=== PATIENT | female | born 1935 | race Hispanic/Latino ===

== ENCOUNTER 2016-05-08 06:08 | Inpatient (IN) | payer MEDICARE ==
[2016-05-08 06:09] VITALS: PULSE 81
[2016-05-08] MEDS ORDERED: Albuterol-Ipratrop 3 mg / 0.5 (3 ml) UD ONE ×2 (06:27→10:51)
[2016-05-08] MEDS ORDERED: Albuterol-Ipratrop 3 mg / 0.5 (3 ml) UD INH STA (06:29)
[2016-05-08] MEDS ORDERED: Albuterol-Ipratrop 3 mg / 0.5 (3 ml) UD IH STA ×2 (06:29→10:31)
[2016-05-08 06:41] LABS: BASO # 0.1 K/uL (0.0-0.2); BASO % 0.9 % (0.0-2.0); EOS # 0.2 K/uL (0.0-0.7); EOS % 2.7 % (0.0-4.0); HEMATOCRIT 36.6 % (34.0-47.0); LYMPH # 1.2 K/uL (1.0-4.3); LYMPH % 18.5 % (20.0-40.0); MEAN CELL VOLUME 99.1 fl (81.0-99.0); MEAN CORPUSCULAR HEMOGLOBIN 34.4 pg (27.0-31.0); MEAN CORPUSCULAR HGB CONC 34.7 g/dL (33.0-37.0); MEAN PLATELET VOLUME 6.5 fl (7.2-11.7); MONO # 0.4 K/uL (0.0-0.8); MONO % 6.8 % (0.0-10.0); NEUT # 4.6 K/uL (1.8-7.0); NEUT % 71.1 % (50.0-75.0); NRBC % 0.1 % (0.0-0.0); RED CELL DISTRIBUTION WIDTH 16.2 % (11.5-14.5); WHITE BLOOD COUNT 6.5 K/uL (4.8-10.8)
[2016-05-08 06:47] LABS: ALB/GLOB RATIO 0.9 (1.0-2.1); ALKALINE PHOSPHATASE 93 U/L (38-126); ALT/SGPT 25 U/L (9-52); AST/SGOT 44 U/L (14-36); BILIRUBIN,TOTAL 4.6 mg/dl (0.2-1.3); BLOOD UREA NITROGEN 23 mg/dl (7-17); CALCIUM 8.9 mg/dL (8.4-10.2); CARBON DIOXIDE 31 mmol/L (22-30); CHLORIDE 100 mmol/L (98-107); GFR AFRICAN-AMERICAN > 60; GLUCOSE,RANDOM 103 mg/dL (65-105); POTASSIUM 4.1 MMOL/L (3.6-5.0); SODIUM 141 mmol/l (132-148); TOTAL PROTEIN 9.5 G/DL (6.3-8.2)
[2016-05-08 06:49] LABS: PARTIAL THROMBOPLASTIN TIME 30.3 SECONDS (23.3-32.5)
--- NOTE | 2016-05-08 06:52 | ED PDOC ---
HPI: SOB/CHF/COPD Time Seen by Provider: 05/08/16 06:15 Chief Complaint (Nursing): Shortness Of Breath Chief Complaint (Provider): Shortness of Breath History Per: Patient, Family () Onset/Duration Of Symptoms: Days (has been going on for the past three weeks) Current Symptoms Are (Timing): Still Present Additional Complaint(s): 6:15 Lisa Gardner is a 80 year old female with a history of heart failure, hypertension, and dementia and a past surgical history of open heart surgery that present to the ED with a chief complaint of shortness of breath that she experienced a few hours ago when trying to go to sleep. Patient reports that she went to bed without a problem, developed her shortness of breath throughout the night She states that it is much more difficult for her to breathe when laying down as opposed to when she sits up. She denies any nausea, vomiting, diarrhea. Had chest pain as well, gone now. No weakness, cough, runny nose, nasal congestion. No long distance travel, calf pain, or hormone tx. PMD: Delmar Bello V Past Medical History Reviewed: Historical Data, Nursing Documentation, Vital Signs Vital Signs: Last Vital Signs Temp 98.3 F 05/08/16 08:18 Pulse 96 H 05/08/16 08:18 Resp 27 H 05/08/16 08:18 BP 151/85 H 05/08/16 08:18 Pulse Ox 95 05/08/16 08:34 - Medical History PMH: Atrial Fibrillation, CAD, CHF, Dementia, HTN Denies: Chronic Kidney Disease - Surgical History Surgical History: Appendectomy, CABG, Coronary Stent - Family History Family History: States: Unknown Family Hx - Living Arrangements Living Arrangements: With Family - Social History Current smoker - smoking cessation education provided: No Alcohol: None Drugs: Denies - Home Medications Home Medications: Ambulatory Orders Medication Instructions Recorded Alendronate [Fosamax] 70 mg PO QWK 06/16/15 Atorvastatin [Lipitor] 10 mg PO DAILY 06/16/15 Furosemide [Lasix] 40 mg PO DAILY 06/16/15 Megestrol Acetate [Megace] 10 ml PO DAILY 06/16/15 Metoprolol Tartrate [Lopressor] 25 mg PO DAILY 06/16/15 Olmesartan Medoxomil [Benicar] 20 mg PO DAILY 06/16/15 Rivastigmine [Exelon 13.3 mg/24 hr 13.3 mg TD DAILY 06/16/15 Patch] Sertraline [Zoloft] 50 mg PO DAILY 06/16/15 Warfarin [Coumadin] 5 mg PO DAILY 06/16/15 Lidocaine 5% [Lidoderm] 1 ea TD DAILY #5 patch 04/20/16 traMADol [Ultram] 50 mg PO TID PRN #12 tab 04/20/16 - Allergies Allergies/Adverse Reactions: Allergies Allergy/AdvReac Type Severity Reaction Status Date / Time No Known Allergies Allergy Verified 06/16/15 12:50 Review of Systems ROS Statement: Except As Marked, All Systems Reviewed And Found Negative Respiratory: Positive for: Shortness of Breath Gastrointestinal: Negative for: Nausea, Vomiting, Abdominal Pain, Diarrhea Physical Exam - Reviewed Nursing Documentation Reviewed: Yes Vital Signs Reviewed: Yes - Physical Exam Appears: Positive for: Non-toxic, No Acute Distress Head Exam: Positive for: ATRAUMATIC, NORMAL INSPECTION, NORMOCEPHALIC Skin: Positive for: Normal Color, Warm, Dry Eye Exam: Positive for: Normal appearance, EOMI, PERRL ENT: Positive for: Normal ENT Inspection. Negative for: Nasal Congestion Neck: Positive for: Normal, Painless ROM, Supple Cardiovascular/Chest: Positive for: Regular Rate, Rhythm. Negative for: Murmur Respiratory: Positive for: Decreased Breath Sounds (bilaterally). Negative for : Wheezing Gastrointestinal/Abdominal: Positive for: Soft. Negative for: Tenderness, Distended Back: Positive for: Normal Inspection. Negative for: L CVA Tenderness, R CVA Tenderness Extremity: Positive for: Normal ROM, Tenderness. Negative for: Pedal Edema Neurologic/Psych: Positive for: Alert, Oriented - Laboratory Results Result Diagrams: 05/08/16 06:31 05/08/16 06:31 Interpretation Of Abn Labs: no acute - ECG ECG: Positive for: Interpreted By Me, Viewed By Me ECG Rhythm: Positive for: Normal QRS, Sinus Rhythm, Nonspecific Changes O2 Sat by Pulse Oximetry: 95 (RA) Pulse Ox Interpretation: Normal - Radiology X-Ray: Interpreted by Me, Viewed By Me X-Ray Interpretation: Cardiomegaly - CT Scan/US ct Other Rad Studies (CT/US): Read By Radiologist Other Rad Interpretation: no pe - Progress ED Course And Treament: 1000: Spoke with Dr. Eli. Will admit tele obs. Unclear source of dyspnea, possibly chronic cardiomegaly. Will give duoneb again as it seems to help pt. Wants morphine for back pain, from previous ? fx. Pt. with no chest pain. AAOx3. Stable. No asa, as pt. on coumadin. Medical Decision Making Medical Decision Makin:30 Initial Impression: Shortness of Breath Initial Plan: * CMP * PTT * PT * Troponin * B-Type Natriuretic Peptide * EKG * Chest X-Ray * Albuterol 3 mL IH * Methylprednisolone 125 mg IVP * Reevaluation Scribe Attestation: Documented by Dulce Spencer, acting as a scribe for Terrance Oliva MD. Provider Scribe Attestation: All medical record entries made by the Scribe were at my direction and personally dictated by me. I have reviewed the chart and agree that the record accurately reflects my personal performance of the history, physical exam, medical decision making, and the department course for this patient. I have also personally directed, reviewed, and agree with the discharge instructions and disposition. Disposition - Clinical Impression Clinical Impression: Chest pain, Dyspnea - Patient ED Disposition Is Patient to be Admitted: Yes Counseled Patient/Family Regarding: Studies Performed, Diagnosis - Disposition Disposition Time: 10:34 Condition: FAIR - Pt Status Changed To: Hospital Disposition Of: Observation - POA Present On Arrival: Falls Or Trauma (hx per pt.)
[2016-05-08 08:29] LABS: ABG ALLEN TEST YES; ARTERIAL BLOOD GAS HCO3 28.4 mmol/L (21-28); ARTERIAL BLOOD GAS PH 7.48 (7.35-7.45); ARTERIAL BLOOD GAS PO2 70 mm/Hg (80-100); DRAW SITE rr
[2016-05-08] MEDS ORDERED: Sodium Chloride 0.9% 50 ML IV ONE (08:49)
[2016-05-08] MEDS ORDERED: Iodixanol 320 MG/ML 100 ML BOTTLE IV ONE (08:49)
--- NOTE | 2016-05-08 08:59 | RAD ---
HISTORY: dyspnea COMPARISON: 04/20/2016 FINDINGS: LUNGS: There is some mild increase in subsegmental atelectasis in volume loss at the lung bases. Minimal amount of pleural fluid is not excluded. Trachea is midline. PLEURA: Minimal amount of pleural fluid not excluded. CARDIOVASCULAR: Heart is once again moderately enlarged. Vasculature does not appear to be significantly congested. Aorta is unchanged. OSSEOUS STRUCTURES: No significant abnormalities. VISUALIZED UPPER ABDOMEN: Normal. OTHER FINDINGS: None. IMPRESSION: Severe Cardiomegaly. Mild increase in bibasilar volume loss from prior study.
--- NOTE | 2016-05-08 10:16 | CT ---
PROCEDURE: CT Chest with contrast (Pulmonary Angiogram) HISTORY: chest pain COMPARISON: None available. TECHNIQUE: Axial computed tomography images were obtained of the chest in the pulmonary arterial phase of enhancement. Coronal and sagittal reformatted images were created and reviewed. Intravenous contrast dose: 100 cc Radiation dose: Total exam DLP = 715 mGy-cm. FINDINGS: PULMONARY ARTERIES: No filling defect is seen in the pulmonary arteries. Examination is limited for evaluation of the peripheral subsegmental pulmonary arteries due to motion artifact and moderate cardiomegaly. Pulmonary arteries are enlarged consistent with pulmonary arterial hypertension. AORTA: Delayed imaging was also obtained. There is atherosclerotic change of the aorta and mild aneurysmal dilatation of the ascending aorta. No intimal flap is seen to suggest aortic dissection. LUNGS: No focal alveolar infiltrate is seen. Mild subsegmental atelectasis is seen medially and posteriorly at the lung bases with a small amount also seen in the inferior lingula. Mild chronic interstitial changes and interlobular thickening are noted which may suggest chronic vascular congestion or other interstitial process. PLEURAL SPACES: No large pleural effusions. There may be some very minimal posterior pleural fluid and/or pleural thickening noted. HEART: Extreme cardiomegaly. LYMPH NODES: No appreciable mediastinal adenopathy. BONES, CHEST WALL: Moderate degenerative changes are seen in the spine. There is a chronic appearing compression fractures seen in the mid thoracic spine region as well as some other smaller wedge deformities in the mid to lower thoracic spine. No lytic process is seen. There is evidence of prior median sternotomy. OTHER FINDINGS: Unremarkable. IMPRESSION: No CT scan evidence of pulmonary embolism. Delayed images were also obtained. No intimal flap is seen in the aorta to suggest aortic dissection. Severe cardiomegaly and probable pulmonary arterial hypertension. Mild interstitial changes and scarring. No large pleural effusion. No focal alveolar infiltrate. Probable mild vascular congestion and/or interstitial change.
--- NOTE | 2016-05-08 12:41 | CP.PCM.HP ---
History of Present Illness - History of Present Illness History of Present Illness: 80 y/o w/f pt of Dr Bello admitted with 3 week Hx OLIVIER / PND PMH: s/p CABS w/MVR 2002 Chronic R & L systolic CHF Atrial Fibrillation, CAD, CHF, Dementia, HTN Denies: Chronic Kidney Disease EKG: AF Troponin: neg BNP: 548 Present on Admission - Present on Admission Any Indicators Present on Admission: No Review of Systems - Review of Systems Systems not reviewed;Unavailable: Dementia - Cardiovascular Cardiovascular: Dyspnea - Respiratory Respiratory: Dyspnea Past Patient History - Past Social History Alcohol: None Drugs: Denies - CARDIAC Hx Cardiac Disorders: Yes Hx Atrial Fibrillation: Yes Hx Congestive Heart Failure: Yes - PULMONARY Hx Respiratory Disorders: Yes - NEUROLOGICAL Hx Neurological Disorder: Yes Hx Alzheimer's Disease: Yes Hx Dementia: Yes - HEENT Hx HEENT Problems: No - RENAL Hx Chronic Kidney Disease: Yes - ENDOCRINE/METABOLIC Hx Endocrine Disorders: No - HEMATOLOGICAL/ONCOLOGICAL Hx Blood Disorders: No - INTEGUMENTARY Hx Dermatological Problems: No - MUSCULOSKELETAL/RHEUMATOLOGICAL Hx Musculoskeletal Disorders: No Hx Falls: No - GENITOURINARY/GYNECOLOGICAL Hx Genitourinary Disorders: No - PSYCHIATRIC Hx Psychophysiologic Disorder: Yes - SURGICAL HISTORY Hx Appendectomy: Yes Hx Coronary Artery Bypass Graft: Yes Hx Coronary Stent: Yes - ANESTHESIA Hx Anesthesia: Yes Meds Allergies/Adverse Reactions: Allergies Allergy/AdvReac Type Severity Reaction Status Date / Time No Known Allergies Allergy Verified 06/16/15 12:50 Physical Exam - Respiratory Exam Respiratory Exam: Decreased Breath Sounds - Cardiovascular Exam Cardiovascular Exam: Irregular Rhythm Results - Vital Signs Recent Vital Signs: Last Vital Signs Temp 98.3 F 05/08/16 08:18 Pulse 100 H 05/08/16 12:05 Resp 27 H 05/08/16 08:18 BP 158/86 H 05/08/16 12:05 Pulse Ox 97 05/08/16 11:10 - Labs Result Diagrams: 05/08/16 06:31 05/08/16 06:31 Assessment & Plan (1) Chest pain Status: Acute (2) Dyspnea Status: Chronic (3) Back pain Status: Chronic
[2016-05-08] MEDS ORDERED: Dextrose 5%/0.45% NS 1,000 ML IV SCH (13:30)
[2016-05-08] MEDS: Albuterol-Ipratrop 3 mg / 0.5 (3 ml) UD INH SCH ×2 (15:59→19:36)
[2016-05-08 16:22] VITALS: BMI 23.0
[2016-05-09] MEDS: Albuterol-Ipratrop 3 mg / 0.5 (3 ml) UD INH SCH ×4 (07:30→20:02)
--- NOTE | 2016-05-09 09:43 | CP.PCM.PN ---
Subjective - Date & Time of Evaluation Date of Evaluation: 05/09/16 Time of Evaluation: 09:42 - Subjective Subjective: Pt seen resting in bed comfortable No SOB Tele: af @ 70 BPM PT: 37.9 INR: 3.64 Will hold coumadin today Objective - Vital Signs/Intake and Output Vital Signs (last 24 hours): Temp Pulse Resp BP Pulse Ox 98.6 F 103 H 24 151/88 H 94 L 05/09/16 05:00 05/09/16 05:00 05/09/16 05:00 05/09/16 05:00 05/09/16 05:00 Intake and Output: 05/09/16 05/09/16 06:59 18:59 Intake Total 980 Balance 980 - Medications Medications: Current Medications Albuterol/Ipratropium (Duoneb 3 Mg/0.5 Mg (3 Ml) Ud) 3 ml INH RQID ALISON Last Admin: 05/09/16 07:30 Dose: 3 ml Hydromorphone HCl (Dilaudid) 2 mg PO Q6 PRN PRN Reason: Pain, moderate (4-7) Last Admin: 05/08/16 21:47 Dose: 2 mg Dextrose/Sodium Chloride (Dextrose 5%/0.45% Ns 1000 Ml) 1,000 mls @ 40 mls/hr IV .Q24H ALISON Stop: 05/09/16 13:31 Last Admin: 05/08/16 14:59 Dose: 40 mls/hr - Labs Labs: PT 37.9 SECONDS (9.6-11.2) H* D 05/09/16 06:00 INR 3.64 (0.92-1.08) H D 05/09/16 06:00 APTT 30.3 SECONDS (23.3-32.5) 05/08/16 06:31 Assessment and Plan (1) Chest pain Status: Acute (2) Dyspnea Status: Chronic (3) Back pain Status: Chronic
--- NOTE | 2016-05-09 17:02 | RAD ---
PROCEDURE: Radiographs of the pelvis. HISTORY: pelvis pain COMPARISON: None. FINDINGS: BONES: Pelvic Bones: Single frontal view of the pelvis reveals no evidence of lytic process or fracture within the iliac bones or pubic rami. Symphysis is unremarkable. Hips: Mild bilateral hip DJD without femoral head flattening or lytic process. No hip fracture. JOINTS: Sacroiliac Joints: Unremarkable. Pubic Symphysis: Unremarkable. OTHER FINDINGS: Degenerative changes are seen in the lower lumbar spine. Diffuse osteopenia is identified. IMPRESSION: Diffuse osteopenia limiting evaluation for subtle fracture. No acute fracture clearly seen.
[2016-05-10] MEDS: Albuterol-Ipratrop 3 mg / 0.5 (3 ml) UD INH SCH ×4 (07:48→19:37)
--- NOTE | 2016-05-10 09:27 | CP.PCM.CON ---
History of Present Illness - History of Present Illness History of Present Illness: 80yF with hx of dementia, CHF, CAD, pulmonary HTN, dyspnea presents to [facility] with chronic intractable back pain. Back pain is located in the lower back, VAS 6-7/10 with radiation to her right leg. Pain started one month ago. Pain is intermittent and sharp. She went to a health and safety advisor for evaluation who ordered an MRI which was not done. Pt is with daughter who has been helping take care of patient; daughter states that mother has had some recent falls and is not ambulatory at home. Pt is also on Coumadin which was recently held 2 d ago. Past Patient History - Past Medical History & Family History Past Medical History?: Yes - Past Social History Smoking Status: Never Smoked - CARDIAC Hx Cardiac Disorders: Yes Hx Atrial Fibrillation: Yes Hx Congestive Heart Failure: Yes - PULMONARY Hx Respiratory Disorders: Yes Hx Asthma: No - NEUROLOGICAL Hx Neurological Disorder: Yes Hx Alzheimer's Disease: Yes Hx Dementia: Yes - HEENT Hx HEENT Problems: No - RENAL Hx Chronic Kidney Disease: No - ENDOCRINE/METABOLIC Hx Endocrine Disorders: No - HEMATOLOGICAL/ONCOLOGICAL Hx Blood Disorders: No Hx AIDS: No Hx Human Immunodeficiency Virus (HIV): No - INTEGUMENTARY Hx Dermatological Problems: No - MUSCULOSKELETAL/RHEUMATOLOGICAL Hx Musculoskeletal Disorders: No Hx Falls: No - GASTROINTESTINAL Hx Gastrointestinal Disorders: No - GENITOURINARY/GYNECOLOGICAL Hx Genitourinary Disorders: No - PSYCHIATRIC Hx Psychophysiologic Disorder: No Hx Substance Use: No - SURGICAL HISTORY Hx Coronary Artery Bypass Graft: Yes - ANESTHESIA Hx Anesthesia: Yes Hx Anesthesia Reactions: No Hx Malignant Hyperthermia: No Has any member of the family had a problem w/ anesthesia?: No Meds Allergies/Adverse Reactions: Allergies Allergy/AdvReac Type Severity Reaction Status Date / Time No Known Allergies Allergy Verified 06/16/15 12:50 - Medications Medications: Current Medications Acetaminophen (Tylenol 325mg Tab) 650 mg PO Q4 PRN PRN Reason: Pain, Mild (1-3) Albuterol/Ipratropium (Duoneb 3 Mg/0.5 Mg (3 Ml) Ud) 3 ml INH RQID ALISON Last Admin: 05/10/16 07:48 Dose: 3 ml Celecoxib (Celebrex) 100 mg PO Q12 PRN PRN Reason: Pain, moderate (4-7) Furosemide (Lasix) 40 mg IVP ONCE ONE Stop: 05/10/16 09:24 Lidocaine (Lidoderm) 1 ea TD DAILY ALISON Pregabalin (Lyrica) 25 mg PO BID ALISON Physical Exam - Constitutional Appears: No Acute Distress - Back Exam Additional comments: limited ROM, mild to moderate L spine tenderness, mild paraveterbral tenderness over facets - Neurological Exam Additional comments: DP flex 4/5 bilateral LE, sensation grossly intact Results - Vital Signs Recent Vital Signs: Last Vital Signs Temp 97.8 F 05/10/16 08:21 Pulse 81 05/10/16 08:21 Resp 18 05/10/16 08:21 BP 154/73 H 05/10/16 08:21 Pulse Ox 98 05/10/16 08:21 - Labs Result Diagrams: 05/08/16 06:31 05/08/16 06:31 Labs: Laboratory Results - last 24 hr 05/10/16 05:40 PT 35.6 H* INR 3.42 H Assessment & Plan - Assessment and Plan (Free Text) Assessment: 80yF with acute on chronic intractable back pain Plan: 1. PT 2. L Spine MRI 3. Plan pending MRI
--- NOTE | 2016-05-10 09:34 | CP.PCM.HP ---
History of Present Illness - History of Present Illness History of Present Illness: See today's note. Pain management consult obtained Metoprolol and lasix restarted for CHF (RV/LV) Present on Admission - Present on Admission Any Indicators Present on Admission: No Past Patient History - Past Medical History & Family History Past Medical History?: Yes - Past Social History Smoking Status: Never Smoked - CARDIAC Hx Cardiac Disorders: Yes Hx Atrial Fibrillation: Yes Hx Congestive Heart Failure: Yes - PULMONARY Hx Respiratory Disorders: Yes Hx Asthma: No - NEUROLOGICAL Hx Neurological Disorder: Yes Hx Alzheimer's Disease: Yes Hx Dementia: Yes - HEENT Hx HEENT Problems: No - RENAL Hx Chronic Kidney Disease: No - ENDOCRINE/METABOLIC Hx Endocrine Disorders: No - HEMATOLOGICAL/ONCOLOGICAL Hx Blood Disorders: No Hx AIDS: No Hx Human Immunodeficiency Virus (HIV): No - INTEGUMENTARY Hx Dermatological Problems: No - MUSCULOSKELETAL/RHEUMATOLOGICAL Hx Musculoskeletal Disorders: No Hx Falls: No - GASTROINTESTINAL Hx Gastrointestinal Disorders: No - GENITOURINARY/GYNECOLOGICAL Hx Genitourinary Disorders: No - PSYCHIATRIC Hx Psychophysiologic Disorder: No Hx Substance Use: No - SURGICAL HISTORY Hx Coronary Artery Bypass Graft: Yes - ANESTHESIA Hx Anesthesia: Yes Hx Anesthesia Reactions: No Hx Malignant Hyperthermia: No Has any member of the family had a problem w/ anesthesia?: No Meds Allergies/Adverse Reactions: Allergies Allergy/AdvReac Type Severity Reaction Status Date / Time No Known Allergies Allergy Verified 06/16/15 12:50 Results - Vital Signs Recent Vital Signs: Last Vital Signs Temp 97.8 F 05/10/16 08:21 Pulse 81 05/10/16 08:21 Resp 18 05/10/16 08:21 BP 154/73 H 05/10/16 08:21 Pulse Ox 98 05/10/16 08:21 - Labs Result Diagrams: 05/08/16 06:31 05/08/16 06:31 Labs: Laboratory Results - last 24 hr 05/10/16 05:40 PT 35.6 H* INR 3.42 H
[2016-05-10] MEDS: Lidocaine 5% Patch TD SCH (09:48)
--- NOTE | 2016-05-10 09:48 | CARD ---
APPROVED REPORT EKG Measurement Heart [id number] ID [id number] <Conclusion> Sinus tachycardia with 1st degree AV block Right superior axis deviation Pulmonary disease pattern Incomplete right bundle branch block ST & T wave abnormality, consider lateral ischemia Abnormal ECG
--- NOTE | 2016-05-10 09:54 | CARD ---
APPROVED REPORT EKG Measurement Heart [id number] <Conclusion> NSR Right superior axis deviation Pulmonary disease pattern Right ventricular hypertrophy Marked ST abnormality, possible lateral subendocardial injury Abnormal ECG
[2016-05-10] MEDS ORDERED: HYDROmorphone 0.5 mg/0.5 ml ISec IVP ONE (10:04)
--- NOTE | 2016-05-10 10:11 | HP ---
She is hospitalized under my care from the Emergency Room. HISTORY OF PRESENT ILLNESS: This 80-year-old female developed congestive cardiac failure in 09/1988 w hen an abrupt onset of atrial fibrillation occurred. Workup showed evidence of severe mitral stenosi s and mitral regurgitation with pulmonary hypertension. The patient eventually required coronary byp ass graft surgery along with mitral valve replacement with a metallic valve in 04/2002 when she also u nderwent a maze procedure, and she was at that time back in sinus rhythm. Over the years, she has gr adually developed osteoporosis and has developed severe dementia, which started to manifest itself ap proximately 4 years back. At this point, she lives at home with her with atrial fibrillation and on Coumadin. Her INR is faithfully checked every 2 months and appropriately managed. The patient has had multiple falls a t home and has seen a pain management doctor at [facility] approximately 3 weeks back, and wo rkup was in progress. Initial management for pain control was started. The patient fell a number of times at home, could not be managed at home, also complained of shortness of breath, and finally was brought to the Emergency Room. She has not responded well to initial treatment, which [facility] [place]. PHYSICAL EXAMINATION: Here: GENERAL: Shows an elderly lady who is alert and awake, but quite confused about the reason for admis woodrow and her surroundings, recognizes me readily, is not in any acute distress at the time of this ex amination. Attempts to lay her flat induced severe lower back and upper chest pain, which are prompt ly relieved by slightly elevating the head. VITAL SIGNS: Telemetry shows the heart rate of 110-120 beats per minute, irregularly irregular. NECK: Jugular venous pressure was not elevated. EXTREMITIES: There was no edema over lower extremity. LUNGS: There were scattered bilateral rales, a mitral prosthetic ____ was audible. HEART: There was an ejection systolic murmur in the aortic area conducted to the base of the neck. EXTREMITIES: The extremities are warm. Nailbeds are pink. There was no central or peripheral cyano sis. There was no clubbing. SKIN: There was no breakdown in the skin on her sacrum or buttock area. EXTREMITIES: Pedal pulses were well felt. Her electrocardiogram showed atrial fibrillation with moderate heart rate. There was right superior axis with no Q-waves on the electrocardiogram. An echocardiogram, which was done approximately 1 year back, has shown significant right ventricular enlargement with moderately depressed right ventricular systolic function, evidence of pulmonary hype rtension with a severely dilated left atrium and a mitral metallic prosthesis that functions well. T he left ventricle was slightly hypertrophied with preserved systolic function, and sclerotic mitral a ortic valve with a gradient of 31 mm at the aortic valve. LABORATORY DATA: Showed hemoglobin and hematocrit of 12.7 grams and 36.6% respectively. Her WBC cou nt and platelet counts were within normal limits. Her INR today was 3.42 with a BUN and creatinine o f 23 and 0.7 mg percent at admission. Her troponin levels were consistently normal, indicating no ev idence of myocyte injury. Her bilirubin was elevated probably due to RBC destruction secondary to a metallic valve. Her AST and ALT were essentially within normal limits. Alkaline phosphatase was nor mal. IMPRESSION: The impression at this time is severe low back pain in a patient with osteoporosis wall also has compression fractures of her lumbar and thoracic vertebra with dementia, chronic atrial fibr illation with right and left ventricular congestive cardiac failure, chronic atrial fibrillation with rheumatic heart disease, status post mitral valve replacement with metallic valve, and mild to moder ate aortic stenosis. A pain management consultation was obtained. Her INR would be managed if an ep idural injection is planned. In the meantime, a CT of the lower back is being obtained by the pain m anagement physician. Delmar Bello MD cc: 23 TT: 05/10/2016 10:11:09 jn
[2016-05-11] MEDS: Albuterol-Ipratrop 3 mg / 0.5 (3 ml) UD INH SCH ×4 (07:55→19:24)
--- NOTE | 2016-05-11 09:03 | CP.PCM.PN ---
Subjective - Date & Time of Evaluation Date of Evaluation: 05/11/16 Time of Evaluation: 09:00 - Subjective Subjective: Has been mostly in bed with little pain Was seen by Dr. Lezama MRI of thoracic and lumbar spine were reviewed with radiologist Pt has old vertibral fractures and will not be amenable for epidural injections Recommendation is to use NSAIDs as out pt Accordingly will send pt home on Toradol for 5 days then Celebrex Will arrange hospital bed and commode at home INR 2.58 todat, will resume [place]af[place] Objective - Vital Signs/Intake and Output Vital Signs (last 24 hours): Temp Pulse Resp BP Pulse Ox 97.8 F 84 18 144/87 96 05/11/16 08:20 05/11/16 08:20 05/11/16 08:20 05/11/16 08:20 05/11/16 08:20 - Medications Medications: Current Medications Acetaminophen (Tylenol 325mg Tab) 650 mg PO Q4 PRN PRN Reason: Pain, Mild (1-3) Albuterol/Ipratropium (Duoneb 3 Mg/0.5 Mg (3 Ml) Ud) 3 ml INH RQID [facility] Last Admin: 05/11/16 07:55 Dose: 3 ml Celecoxib (Celebrex) 100 mg PO Q12 PRN PRN Reason: Pain, moderate (4-7) Last Admin: 05/11/16 04:39 Dose: 100 mg Ketorolac Tromethamine (Toradol) 15 mg IM ONCE ONE Stop: 05/11/16 08:49 Lidocaine (Lidoderm) 1 ea TD DAILY [facility] Last Admin: 05/10/16 09:48 Dose: 1 ea Metoprolol Tartrate (Lopressor) 25 mg PO Q12 [facility] Last Admin: 05/11/16 00:35 Dose: 25 mg Pregabalin (Lyrica) 25 mg PO BID [facility] Last Admin: 05/10/16 16:36 Dose: 25 mg - Labs Labs: PT 26.8 SECONDS (9.6-11.2) H D 05/11/16 06:20 INR 2.58 (0.92-1.08) H D 05/11/16 06:20 APTT 30.3 SECONDS (23.3-32.5) 05/08/16 06:31
[2016-05-11] MEDS: Lidocaine 5% Patch TD SCH (09:22)
--- NOTE | 2016-05-11 12:54 | MRI ---
MRI lumbar spine 05/10/2016. History: Radiculopathy. Multi planar/multipulse weighted sequences of lumbar spine performed. Correlation made with concurrent MRI of the thoracic spine. Findings: Current study reveals a subacute anterior wedge compression fracture at anomaly involving superior endplate of the L2 segment. There is mild retropulsion of the posterior superior cortex that results in narrowing of the central canal estimated at approximately 60 percent. There is mild compression of the ventral surface of the thecal sac and mild posterior displacement of the intrathecal nerve roots of cauda equina. Note is made of a elliptical shaped extra-axial heterogeneous measuring approximately 6.0 cm cc x 1.32cm trans x .65cm ap within the right posterolateral aspect of the spinal canal and extends from approximately the mid T12 through the upper L2 level that most likely represents a epidural hematoma in the exhibiting various stages of hemorrhagic blood products. Suspected epidural collection does compress the right posterolateral border of the thecal sac and displaces the thecal sac and intrathecal nerve roots of the cauda equina antrum medially towards the left side. The remaining vertebral bodies otherwise exhibit relatively normal stature aside from mild multilevel fish-mouth endplate deformities. There is also a mild levoscoliosis centered at L2 level. . Vertebral bodies otherwise exhibit normal alignment. Facets normally aligned. Mild multilevel degenerative spondylosis is also present. Changes include varying degrees disc desiccation, mild posterior disc space narrowing with broad-based disc bulging ridge complexes that cross the ventral surface of sac most notably at the L 3 L4, L5-S1 and to a lesser degree remaining levels. The facet joints also hypertrophic throughout. No definitive intrinsic signal changes seen within the conus which appears terminate at approximately the L1 level. Multiple small bilateral renal cysts are present. Note made of the more discrete 1.5 mm rounded focus dark T2 signal posterior midpole left kidney of uncertain etiology. Consider followup ultrasound to exclude solid mass Impression: There is a mild subacute/subacute compression fracture of the L2 segment with retropulsion of posterior cortex that does result in mild canal narrowing and compressive effects on the ventral surface of thecal sac. In addition, there is an apparent epidural hematoma within the right posterolateral margin of the spinal canal extending from approximately mid T12 through the upper L2 level that also results compressive effects along the posterolateral border of the thecal sac and cauda equina.. Note these findings were discussed with Beatriz Mari at approximately 12:40 a.m. with written down and read back verification. Multilevel degenerative spondylosis. Bilateral renal cysts. Artifact versus solid mass lesion left kidney. Sonographic evaluation of kidneys recommended
--- NOTE | 2016-05-11 13:36 | MRI ---
MRI of the thoracic spine 05/10/2016. History: Compression fracture. Multi planar/multipulse weighted sequences of the thoracic spine performed. Comparison made with concurrent MRI of the lumbar spine as well as CTA chest 05/08/2016. Findings: Current study reveals chronic-subacute compression fracture of the T6 segment associated with retropulsion of posterior cortex result in irregular compressive effects on the ventral surface of spinal cord. . There is also mild edema along the anterior inferior corner of the T5 segment which could represent a developing compression fracture. Chronic compression deformities of the T8, T9 segments with mild multilevel fish-mouth endplate deformities are present. There Minor multilevel degenerative spondylosis of the thoracic spine. No disc herniation or significant disc bulges seen at the remaining levels. No definitive intrinsic signal changes are identified within the visualized thoracic spinal cord. Acute/ subacute compression fracture L2 segment has been described in concurrent MRI of the lumbar spine. In addition, an epidural hematoma within the right posterolateral margin of spinal canal extending from approximately mid T12 through the upper L2 level has also described in detail on prior lumbar spine MRI. Please refer to that for additional. Impression: Chronic/subacute compression fracture T6 segment mild retropulsion posterior cortex that results in mild irregular compressive effects on the ventral surface of thecal sac. There is also mild edema along the inferior inferior 0.5 segment which could represent developing compression fracture. Chronic compression deformities of T8 and T9 segments mild multilevel fish-mouth endplate deformities. Please refer to MRI of the lumbar spine and corresponding report for details regarding the compression fracture L2 associated with a epidural hematoma within the right posterolateral margin of the spinal canal extending from T12 through L2 levels with mild compressive effects on the right posterolateral margin thecal sac and compression of lower thoracic spinal cord and cauda equina.
[2016-05-12] MEDS: Albuterol-Ipratrop 3 mg / 0.5 (3 ml) UD INH SCH ×4 (07:25→19:03)
--- NOTE | 2016-05-12 09:02 | CP.PCM.PN ---
Subjective - Date & Time of Evaluation Date of Evaluation: 05/12/16 Time of Evaluation: 08:40 - Subjective Subjective: According to who slept next to pt's bed, she was in pain all night" Pt was able to turn in bed with my help with little pain (!) Telemetry shows sinus rhythm at 80 BPM/BP 140/70 mm Hg JVP flat, few basal rales MRI of the Thoracic and lumbar spine show fractured T6 and L2 vertibae with hematoma Pain management feels a neurosurg evaluation for poss vertibroplasty should be obtained for pain relief INR today 1.8 (will hold off today's dose till [facility] sees her and gives an openion Pulse ox today to check if she needs O2 supplement at home Objective - Vital Signs/Intake and Output Vital Signs (last 24 hours): Temp Pulse Resp BP Pulse Ox 97.6 F 87 20 149/78 96 05/12/16 08:05 05/12/16 08:05 05/12/16 08:05 05/12/16 08:05 05/12/16 08:05 - Medications Medications: Current Medications Acetaminophen (Tylenol 325mg Tab) 650 mg PO Q4 PRN PRN Reason: Pain, Mild (1-3) Last Admin: 05/12/16 02:50 Dose: 650 mg Albuterol/Ipratropium (Duoneb 3 Mg/0.5 Mg (3 Ml) Ud) 3 ml INH RQID [facility] Last Admin: 05/12/16 07:25 Dose: 3 ml Celecoxib (Celebrex) 100 mg PO Q12 PRN PRN Reason: Pain, moderate (4-7) Last Admin: 05/11/16 04:39 Dose: 100 mg Furosemide (Lasix) 20 mg PO DAILY [facility] Lidocaine (Lidoderm) 1 ea TD DAILY [facility] Last Admin: 05/11/16 09:22 Dose: 1 ea Losartan Potassium (Cozaar) 50 mg PO DAILY [facility] Metoprolol Tartrate (Lopressor) 25 mg PO Q12 [facility] Last Admin: 05/11/16 21:51 Dose: 25 mg Pregabalin (Lyrica) 25 mg PO BID [facility] Last Admin: 05/11/16 16:36 Dose: 25 mg - Labs Labs: PT 19.3 SECONDS (9.6-11.2) H D 05/12/16 06:14 INR 1.86 (0.92-1.08) H D 05/12/16 06:14 APTT 30.3 SECONDS (23.3-32.5) 05/08/16 06:31
--- NOTE | 2016-05-12 09:37 | CARD ---
APPROVED REPORT EKG Measurement Heart [id number] [place] 262P [id number] <Conclusion> Sinus rhythm with 1st degree AV block Right superior axis deviation Pulmonary disease pattern Nonspecific ST and T wave abnormality Abnormal ECG
[2016-05-12] MEDS: Lidocaine 5% Patch TD SCH (10:00)
--- NOTE | 2016-05-12 11:07 | CP.PCM.PN ---
Subjective - Date & Time of Evaluation Date of Evaluation: 05/12/16 Time of Evaluation: 10:55 - Subjective Subjective: The neurosurgeon reviewed MRI of the spine. He does not feel pt needs vertibroplasty. He is more concerned about the hematoma, which according to him will need "Open evacuation" She is not a candidate for such a procedure Pt's family also agrees with this conclusion The hematoma is not the source of her pain and has no motor consequences so far. Will continue Warfarin Objective - Vital Signs/Intake and Output Vital Signs (last 24 hours): Temp Pulse Resp BP Pulse Ox 97.6 F 87 20 149/78 96 05/12/16 08:05 05/12/16 10:28 05/12/16 08:05 05/12/16 10:28 05/12/16 08:05 - Medications Medications: Current Medications Acetaminophen (Tylenol 325mg Tab) 650 mg PO Q4 PRN PRN Reason: Pain, Mild (1-3) Last Admin: 05/12/16 02:50 Dose: 650 mg Albuterol/Ipratropium (Duoneb 3 Mg/0.5 Mg (3 Ml) Ud) 3 ml INH RQID [facility] Last Admin: 05/12/16 07:25 Dose: 3 ml Celecoxib (Celebrex) 100 mg PO Q12 PRN PRN Reason: Pain, moderate (4-7) Last Admin: 05/11/16 04:39 Dose: 100 mg Furosemide (Lasix) 20 mg PO DAILY [facility] Last Admin: 05/12/16 10:09 Dose: 20 mg Lidocaine (Lidoderm) 1 ea TD DAILY [facility] Last Admin: 05/12/16 10:00 Dose: 1 ea Losartan Potassium (Cozaar) 50 mg PO DAILY [facility] Last Admin: 05/12/16 10:28 Dose: 50 mg Metoprolol Tartrate (Lopressor) 25 mg PO Q12 [facility] Last Admin: 05/12/16 10:02 Dose: 25 mg Pregabalin (Lyrica) 25 mg PO BID [facility] Last Admin: 05/12/16 10:09 Dose: 25 mg - Labs Labs: PT 19.3 SECONDS (9.6-11.2) H D 05/12/16 06:14 INR 1.86 (0.92-1.08) H D 05/12/16 06:14 APTT 30.3 SECONDS (23.3-32.5) 05/08/16 06:31
--- NOTE | 2016-05-12 12:56 | IP.NPCORE ---
Heart Failure Core Measure - Heart Failure Ejection Fraction: 40 % or Greater (echo 06/16/ EF 50-55%) FLORENCIA Inhibitor Prescribed: No Contraindication/Reason for not providing: on ARB Beta-Charmaine Prescribed: Metoprolol Succinate Angiotensin II Receptor Charmaine Prescribed: Yes AnticoagulationTherapy for Atrial Fibrillation/Atrialflutter: Yes Aldosterone Antagonist Prescribed: No Contraindication/Reason for not providing: na, patient is on Lasix Hydralazine Nitrate Prescribed: No Contraindication/Reason for not providing: na Implantable Cardioverter Defibrillator Therapy: No Contraindication/Reason for not providing: na Cardiac Resynchronization Therapy Prescribed: No Contraindication/Reason for not providing: na - Follow up Will be discharged to: Home (on Home o2,hospital bed)
[2016-05-13] MEDS: Albuterol-Ipratrop 3 mg / 0.5 (3 ml) UD INH SCH ×2 (07:51→11:05)
[2016-05-13 08:30] VITALS: RESP 20
[2016-05-13] MEDS: Lidocaine 5% Patch TD SCH (09:09)
--- NOTE | 2016-05-13 11:16 | CP.PCM.PN ---
Subjective - Date & Time of Evaluation Date of Evaluation: 05/13/16 Time of Evaluation: 11:00 - Subjective Subjective: Slept through all of the night C/O Pain in lower back now Can be turned from side to side and her back was palpated with little discomfort, Pt was pulled up in bed with her assistance with little discomfort Daughter helped her to the commode from the bed this AM with mild discomfort Vital signs stable INR 1.96 (warfarin ordered) Being sent home with Celebrex for pain Hospital bed/commode arranged at home. Objective - Vital Signs/Intake and Output Vital Signs (last 24 hours): Temp Pulse Resp BP Pulse Ox 97.9 F 82 20 137/76 95 05/13/16 09:16 05/13/16 09:16 05/13/16 09:16 05/13/16 09:16 05/13/16 09:16 - Medications Medications: Current Medications Acetaminophen (Tylenol 325mg Tab) 650 mg PO Q4 PRN PRN Reason: Pain, Mild (1-3) Last Admin: 05/13/16 09:16 Dose: 650 mg Albuterol/Ipratropium (Duoneb 3 Mg/0.5 Mg (3 Ml) Ud) 3 ml INH RQID [facility] Last Admin: 05/13/16 11:05 Dose: 3 ml Celecoxib (Celebrex) 100 mg PO Q12 PRN PRN Reason: Pain, moderate (4-7) Last Admin: 05/13/16 04:59 Dose: 100 mg Furosemide (Lasix) 20 mg PO DAILY [facility] Last Admin: 05/13/16 09:13 Dose: 20 mg Lidocaine (Lidoderm) 1 ea TD DAILY [facility] Last Admin: 05/13/16 09:09 Dose: 1 ea Losartan Potassium (Cozaar) 50 mg PO DAILY [facility] Last Admin: 05/13/16 09:13 Dose: 50 mg Metoprolol Tartrate (Lopressor) 25 mg PO Q12 [facility] Last Admin: 05/13/16 09:14 Dose: 25 mg Pregabalin (Lyrica) 25 mg PO BID [facility] Last Admin: 05/13/16 09:16 Dose: 25 mg Warfarin Sodium (Coumadin) 7.5 mg PO QD5 [facility] PRN Reason: Protocol Stop: 05/13/16 17:01 - Labs Labs: PT 20.4 SECONDS (9.6-11.2) H 05/13/16 06:30 INR 1.96 (0.92-1.08) H 05/13/16 06:30 APTT 30.3 SECONDS (23.3-32.5) 05/08/16 06:31
[2016-05-13 12:41] VITALS: BP 123/72; PULSE 60; TEMP 98; O2SAT 97
--- NOTE | 2016-05-14 12:53 | PQF GENQUE ---
Dr. Kruger pt was admitted with compression fractures of lumbar and thoracic vertebrae. After study what is the cause of the pt's fractures? ie.. trauma, osteoporosis etc... This form is a permanent part of the medical record Clarification of your documentation is requested to better reflect the severity of illness and intensity of treatment of your patient. Indicators present [] Specify: [] [] Specify: [] [] Specify: [] [] Specify: [] Location in the medical record that reflects the above clinical findings: [] Treatment Provided: [] PHYSICIAN'S RESPONSE Based on your medical judgment of the clinical indicators outlined above please clarify the following: [] Practitioner response [] If unable to determine, please check the box, sign and date. Present On Admission (POA) Indicator: [] Present at the time of admission [] Not present at the time of admission [] Clinically Undetermined In responding to this query, please exercise your independent professional judgment. The fact that a question is asked does not imply that any particular answer is desired or expected. Thank you for your clarification on this documentation. If you have any questions please call:[ ] * Thank you, [ ]Andreea Nath bottom sprayer ANUP
--- NOTE | 2016-05-17 11:33 | DS ---
She was hospitalized under my care on 05/08/2016 and discharged on 05/14/2016. FINAL DIAGNOSES: Multiple vertebral body fractures secondary to osteoporosis with severe back pain, a large intrathecal hematoma, status post mitral valve replacement with a metallic valve, chronic ora l anticoagulation, congestive cardiac failure, rheumatic mitral disease, and dementia. This 80-year-old female, who has had rheumatic heart disease requiring mitral valve replacement with a metallic valve more than 14 years back, and has had intermittent atrial fibrillation and now conges tive cardiac failure, was hospitalized after persistent back pain required her coming to the Emergenc y Room. The patient was being worked up at a pain management center in [place] for almost a couple of weeks before urgent arrival to the Emergency Room for back pain, was found necessary by the famil y to bring her here by ambulance. The patient has had worsening dementia over the last 3-4 years and has had osteoporosis for a much lo nger period. Upon arrival here, she was seen by a pain management physician who recommended that she undergo an MRI of the thoracic, as well as lumbar spine. The MRI revealed, in addition to fracture of T6 and L2 vertebrae, a large hematoma which was in the epidural space compressing the thoracic cor d and cauda equina. The films were reviewed by a neurosurgeon who indicated that if an evacuation o f this hematoma was contemplated, this would have to be an open procedure, and a vertebroplasty proce dure will not relieve the patient. In view of this, the issue of possibly subjecting the patient to surgery was discussed with her family and her daughter, who was the main decision maker strongly decl ined to consider this option given the patient's dementia and congestive cardiac failure as well as a ge. Since there was no motor deficit or bladder/ bowel involvement, an evacuation of this hematoma w as not considered an immediate concern. With that in mind with the sole object of relieving her pain , the pain management physician was again consulted who recommended that in addition to Lidoderm patc h, the patient be given nonsteroidal anti-inflammatory drugs, and tramadol as the only p.r.n. use. Examination of the patient revealed that turning her in bed or palpating her lower back did not induc e immediate severe pain, and the patient had spent a comfortable night, and the following day after a hospital bed and a bedside commode was arranged at home, the patient was allowed to return home with instructions to the daughter that oral nonsteroidal anti-inflammatory drugs and a tramadol only for p.r.n. use were appropriate management for her pain, and the patient was allowed to return home. Her condition at the time of discharge was satisfactory. The potential for additional vertebral fractures given her advanced osteoporosis was kept in mind, an d again reminded to the patient's family. Delmar Bello MD cc: 23 TT: 05/17/2016 11:32:24 jn
== END 2016-05-13 13:30 | disposition home health service (06) | DRG 542 ==
LOC: H.ER 06:08 → H.ERHOLD 10:31 → H.TEL 13:06 → OBSVTOIN 05-09 13:10
PROVIDERS: ADMIT Internal Medicine Cardiovascular Disease; ATTEND Internal Medicine Cardiovascular Disease
DX: M80.08XA Age-related osteoporosis with current pathological fracture, vertebra(e), initial encounter for fracture (principal); G95.19 Other vascular myelopathies; I09.81 Rheumatic heart failure; I50.22 Chronic systolic (congestive) heart failure; I27.2 Other secondary pulmonary hypertension; I48.2 Chronic atrial fibrillation; G30.9 Alzheimer's disease, unspecified; F02.80 Dementia in other diseases classified elsewhere, unspecified severity, without behavioral disturbance, psychotic disturbance, mood disturbance, and anxiety; I25.10 Atherosclerotic heart disease of native coronary artery without angina pectoris; Z79.01 Long term (current) use of anticoagulants; Z95.1 Presence of aortocoronary bypass graft; Z95.2 Presence of prosthetic heart valve; Z95.5 Presence of coronary angioplasty implant and graft; I10 Essential (primary) hypertension; G89.29 Other chronic pain

== ENCOUNTER 2016-08-09 01:11 | Inpatient (IN) | payer MEDICARE ==
[2016-08-09 01:12] VITALS: PULSE 81; BMI 23.0
--- NOTE | 2016-08-09 01:43 | ED PDOC ---
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 Pt's and daughter at the bedside, report that she can not walk alone. She was assisted to restroom by her and when he turned to get toilet paper, she leaned too far over and fell off, striking her head on the floor. No LOC, no episodes of vomiting. No chest pain or SOB. Kirti reports pt was complaining of abdominal pain yesterday and had 2 episodes of loose, watery stools. Pt denies nay abdominal pain at this time Past Medical History Reviewed: Nursing Documentation, Vital Signs Vital Signs: Last Vital Signs Temp 99 F 08/09/16 01:21 Pulse 94 H 08/09/16 01:21 Resp 16 08/09/16 01:21 BP 142/73 08/09/16 01:21 Pulse Ox 98 08/09/16 01:21 - Medical History PMH: Alzheimer's Disease, Atrial Fibrillation, CAD, CHF, Dementia, HTN Denies: Asthma, HIV, Chronic Kidney Disease - Surgical History Surgical History: Appendectomy, CABG, Coronary Stent - Family History Family History: States: Unknown Family Hx - Living Arrangements Living Arrangements: With Family - Social History Current smoker - smoking cessation education provided: No Alcohol: None Drugs: Denies - Home Medications Home Medications: Ambulatory Orders Medication Instructions Recorded Alendronate [Fosamax] 70 mg PO QWK 06/16/15 Atorvastatin [Lipitor] 10 mg PO DAILY 06/16/15 Furosemide [Lasix] 40 mg PO DAILY 06/16/15 Sertraline [Zoloft] 50 mg PO DAILY 06/16/15 Warfarin [Coumadin] 5 mg PO DAILY 06/16/15 Losartan [Cozaar] 50 mg PO DAILY 05/08/16 Celecoxib [celeBREX] 100 mg PO Q12 PRN #30 cap 05/13/16 Lidocaine 5% [Lidoderm] 1 ea TD DAILY #30 patch 05/13/16 Metoprolol Tartrate [Lopressor] 25 mg PO Q12 #60 tab 05/13/16 - Allergies Allergies/Adverse Reactions: Allergies Allergy/AdvReac Type Severity Reaction Status Date / Time No Known Allergies Allergy Verified 08/09/16 01:21 Review of Systems ROS Statement: Except As Marked, All Systems Reviewed And Found Negative Gastrointestinal: Positive for: Diarrhea Skin: Positive for: Other (laceration) Neurological: Positive for: Headache Physical Exam - Reviewed Nursing Documentation Reviewed: Yes Vital Signs Reviewed: Yes - Physical Exam Appears: Positive for: Well, Non-toxic, No Acute Distress Head Exam: Positive for: NORMAL INSPECTION, NORMOCEPHALIC. Negative for: ATRAUMATIC ((+) large hematoma to left frontal scalp with 4 cm jagged laceration , no active bleed) Skin: Positive for: Normal Color, Warm, DRY Eye Exam: Positive for: EOMI, Normal appearance, PERRL ENT: Positive for: Normal ENT Inspection Neck: Positive for: Normal, Painless ROM Cardiovascular/Chest: Positive for: Regular Rate, Rhythm Respiratory: Positive for: CNT, Normal Breath Sounds Gastrointestinal/Abdominal: Positive for: Normal Exam, Bowel Sounds, Soft Back: Positive for: Normal Inspection Extremity: Positive for: Normal ROM Neurologic/Psych: Positive for: Alert, Oriented - Laboratory Results Result Diagrams: 08/09/16 02:12 08/09/16 02:12 - ECG O2 Sat by Pulse Oximetry: 98 Medical Decision Making Medical Decision Making: Laceration repaired by science writer. Labs resulted and reviewed by science writer, family educated on results IMPRESSION: - No evidence of acute intracranial injury or fractures. AMAIRANI BLANCO | Final Radiology Report CONFIDENTIALITY STATEMENT This report is intended only for use by the referring physician, and only in accordance with law. If you received this in error, call [phone]. Page 2 of 2 - Chronic ischemic changes. 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 - See above for remaining findings. Case disused with Pt's PMD, Dr. Aguirre, who agreed with admission at this time due to anemia, unsteady gait and fall. Urinalysis pending still at this time ED MD made aware Disposition - Clinical Impression Clinical Impression: Head injury, Laceration, Anemia - Patient ED Disposition Is Patient to be Admitted: No - Disposition Disposition Time: 06:14 Condition: STABLE Instructions: Laceration (ED), Head Injury (ED), Anemia (ED) - POA Present On Arrival: Falls Or Trauma Laceration - Laceration Repair 4 cm Wound Length (In cm): 4 Description Of Wound: Irregular Wound Cleansed With: Sterile Saline Anesthesia: Lidocaine 1%, With Epi Wound Examination: Irrigated With Saline Wound Closure: Suture Suture Technique And Material Used: Running, Vicryl Wound Complexity: Intermediate"
[2016-08-09] MEDS ORDERED: Lidocaine 2% w Epi 1:100,000 Inj IJ ONE (01:57)
[2016-08-09] MEDS ORDERED: diaZEpam 10 mg/2 ml Inj IVP ONE (02:19)
[2016-08-09 03:08] LABS: BASO % 0.8 % (0.0-2.0); EOS # 0.1 K/uL (0.0-0.7); EOS % 1.6 % (0.0-4.0); HEMATOCRIT 27.3 % (34.0-47.0); LYMPH # 1.5 K/uL (1.0-4.3); LYMPH % 31.6 % (20.0-40.0); MEAN CELL VOLUME 101.8 fl (81.0-99.0); MEAN CORPUSCULAR HEMOGLOBIN 34.6 pg (27.0-31.0); MEAN PLATELET VOLUME 6.5 fl (7.2-11.7); MONO # 0.4 K/uL (0.0-0.8); MONO % 7.4 % (0.0-10.0); NEUT # 2.8 K/uL (1.8-7.0); NEUT % 58.6 % (50.0-75.0); NRBC % 0.3 % (0.0-0.0); RED CELL DISTRIBUTION WIDTH 15.4 % (11.5-14.5); WHITE BLOOD COUNT 4.8 K/uL (4.8-10.8)
[2016-08-09 03:17] LABS: CHLORIDE 100 mmol/L (98-107); POTASSIUM 4.3 MMOL/L (3.6-5.0); SODIUM 139 mmol/l (132-148)
[2016-08-09 03:19] LABS: GFR AFRICAN-AMERICAN > 60
[2016-08-09 03:20] LABS: ALKALINE PHOSPHATASE 44 U/L (38-126); ALT/SGPT 27 U/L (9-52); AST/SGOT 52 U/L (14-36); BILIRUBIN,TOTAL 1.8 mg/dl (0.2-1.3); BLOOD UREA NITROGEN 24 mg/dl (7-17); CARBON DIOXIDE 31 mmol/L (22-30); GLUCOSE,RANDOM 88 mg/dL (65-105); TOTAL PROTEIN 8.7 G/DL (6.3-8.2)
[2016-08-09 03:21] LABS: CALCIUM 8.7 mg/dL (8.4-10.2)
--- NOTE | 2016-08-09 03:33 | CT ---
EXAM: CT Head Without Intravenous Contrast CLINICAL HISTORY: 80 years old, female; Injury or trauma; Fall; Initial encounter; Bleeding / hemorrhage; Injury date: 08/08/16; Additional info: On coumadin, fall, laceration TECHNIQUE: Axial computed tomography images of the head/brain without intravenous contrast. This CT exam was performed using one or more of the following dose reduction techniques: automated exposure control, adjustment of the mA and/or kV according to patient size, and/or use of iterative reconstruction technique. Coronal and sagittal reformatted images were created and reviewed. EXAM DATE/TIME: 08/09/2016 1:42 AM COMPARISON: No relevant prior studies available. FINDINGS: BRAIN: Multiple areas of CSF density are seen in the cerebellum bilaterally, suspicious for multiple, bilateral old/chronic cerebellar infarcts. Focal areas of low density are seen in the right basal ganglia, most compatible with old/chronic lacunar infarcts. Areas of hypodensity seen in the white matter bilaterally, nonspecific in appearance, but most likely representing chronic small vessel ischemic changes, in a patient of this age. Diffuse, age-related cortical atrophy and ventriculomegaly. No significant acute abnormality identified. No acute hemorrhage seen within the brain. No acute extra-axial fluid collections visualized. No evidence of significant mass effect within the brain. VENTRICLES: See above. BONES/JOINTS: No acute fractures or other acute bony abnormality noted. SOFT TISSUES: Soft tissue swelling in the left supraorbital scalp. Foci of air also seen in the scalp in this area, which are presumably related to an underlying soft tissue laceration. VASCULATURE: Atherosclerotic calcification. SINUSES: Fluid in the left sphenoid sinus, felt to be secondary to sinusitis. Sinus day appear intact. There is also moderate mucosal thickening in the left maxillary sinus. MASTOID AIR CELLS: Mastoid air cells appear clear. IMPRESSION: - No evidence of acute intracranial injury or fractures. - Chronic ischemic changes. 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 - See above for remaining findings.
[2016-08-09 07:55] LABS: RBC URINE 6 /hpf (0-3); URINE BACTERIA RARE (<OCC); URINE BILIRUBIN NEGATIVE (NEGATIVE); URINE BLOOD NEGATIVE (NEGATIVE); URINE COLOR AMBER (YELLOW); URINE GLUCOSE (UA) NEG (Normal); URINE KETONE NEGATIVE (NEGATIVE); URINE LEUKOCYTE ESTERASE TRACE Leu/uL (Negative); URINE PROTEIN 30 mg/dL (NEGATIVE); URINE UROBILINOGEN 0.2-1.0 mg/dL (0.2-1.0); WBC URINE 7 /hpf (0-5)
--- NOTE | 2016-08-09 09:22 | CP.PCM.HP ---
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) A Fib CHF (LV, Syst, CHR) Recurring Abd pain with hyperbilirubinemia CT of abd with IV contrast Present on Admission - Present on Admission Any Indicators Present on Admission: Yes History of DVT/PE: No History of Uncontrolled Diabetes: No Urinary Catheter: No Decubitus Ulcer Present: Yes Decubitus Ulcer Location: Sacrum Decubitus Ulcer Stage: II History Surgical Site Infection Following: None - Notes: Notes:: Wpund care evaluation arranged Past Patient History - Past Medical History & Family History Past Medical History?: Yes - Past Social History Alcohol: None Drugs: Denies - CARDIAC Hx Atrial Fibrillation: Yes Hx Congestive Heart Failure: Yes Hx Hypertension: Yes - PULMONARY Hx Asthma: No - NEUROLOGICAL Hx Alzheimer's Disease: Yes Hx Dementia: Yes - HEENT Hx HEENT Problems: No - RENAL Hx Chronic Kidney Disease: No - ENDOCRINE/METABOLIC Hx Endocrine Disorders: No - HEMATOLOGICAL/ONCOLOGICAL Hx Human Immunodeficiency Virus (HIV): No - INTEGUMENTARY Hx Dermatological Problems: No - MUSCULOSKELETAL/RHEUMATOLOGICAL Hx Musculoskeletal Disorders: No Hx Falls: No - GASTROINTESTINAL Hx Gastrointestinal Disorders: No - GENITOURINARY/GYNECOLOGICAL Hx Genitourinary Disorders: No - PSYCHIATRIC Hx Psychophysiologic Disorder: No Hx Substance Use: No - SURGICAL HISTORY Hx Appendectomy: Yes Hx Coronary Artery Bypass Graft: Yes Hx Coronary Stent: Yes - ANESTHESIA Hx Anesthesia: Yes Hx Anesthesia Reactions: No Hx Malignant Hyperthermia: No Meds Allergies/Adverse Reactions: Allergies Allergy/AdvReac Type Severity Reaction Status Date / Time No Known Allergies Allergy Verified 08/09/16 01:21 Results - Vital Signs Recent Vital Signs: Last Vital Signs Temp 98 F 08/09/16 08:23 Pulse 71 08/09/16 08:23 Resp 16 08/09/16 08:23 BP 136/70 08/09/16 08:23 Pulse Ox 99 08/09/16 07:48 - Labs Result Diagrams: 08/09/16 02:12 08/09/16 02:12 Labs: Laboratory Results - last 24 hr 08/09/16 07:35 Urine Color Merlyn Urine Clarity Cloudy Urine pH 7.0 Ur Specific Patterson 1.017 Urine Protein 30 Urine Glucose (UA) Neg Urine Ketones Negative Urine Blood Negative Urine Nitrate Negative Urine Bilirubin Negative Urine Urobilinogen 0.2-1.0 Ur Leukocyte Esterase Trace Urine RBC (Auto) 6 H Urine Microscopic WBC 7 H Ur Squamous Epith Cells < 1 Urine Bacteria Rare
[2016-08-09] MEDS ORDERED: Iohexol 240 (50 ml) PO ONE (10:12)
[2016-08-09] MEDS ORDERED: Iohexol 240 (50 ml) ONE (10:16)
[2016-08-09] MEDS ORDERED: Iohexol 300 100 ML IJ ONE (15:00)
[2016-08-09] MEDS ORDERED: Sodium Chloride 0.9% 50 ML IV ONE (15:00)
--- NOTE | 2016-08-09 16:06 | RAD ---
HISTORY: med screening COMPARISON: Chest x-ray performed 05/08/16 TECHNIQUE: Chest, one view. FINDINGS: LUNGS: Right basilar atelectasis or infiltrate. Linear atelectasis, left mid lung zone. Please note that chest x-ray has limited sensitivity for the detection of pulmonary masses. PLEURA: No significant pleural effusion identified. No definite pneumothorax . CARDIOVASCULAR: Severe cardiomegaly. Atherosclerotic calcifications of the aorta. OSSEOUS STRUCTURES: Degenerative changes. VISUALIZED UPPER ABDOMEN: Unremarkable. OTHER FINDINGS: None. IMPRESSION: Right basilar atelectasis or infiltrate. Linear atelectasis, left mid lung zone. Severe cardiomegaly, similar prior study.
--- NOTE | 2016-08-09 18:28 | CT ---
CT abdomen and pelvis with IV contrast Indication: Abdominal pain Technique: Contiguous axial images of the abdomen and pelvis. Coronal and Sagittal reformats generated and reviewed. Oral contrast was administered. 90 mL Omnipaque [address] exam was performed using 1 or more of the falling dose reduction techniques: Automated exposure control, adjustment of the MAA and/or kV according to patient size, and/or use of iterative reconstruction technique. Radiation dose: Total exam DLP = 592.84 MGy-cm. Comparison: CT abdomen and pelvis without IV contrast performed 12/14/13. Findings: Partially imaged median sternotomy wires. Severe cardiomegaly. Dense coronary artery calcifications. Dense mitral annulus calcification. Bibasilar atelectasis or infiltrates. No visible pleural effusion or pneumothorax. Cholelithiasis. Atrophic pancreas. Hypoattenuation of the liver compatible with hepatic steatosis. 7 mm hypodense lesion, left upper pole, statistically a cyst. The spleen, kidneys, and adrenal glands appear otherwise unremarkable. Dense atherosclerotic calcifications of the aorta and branches. The stomach is nondistended. The bowel loops appear within normal limits of caliber without evidence of intestinal obstruction. There is no definite free air. Circumferential thickening of the rectosigmoid colon can be seen in setting of chronic diverticulosis. Clinical correlation is recommended to exclude colitis (I.e. infectious, inflammatory, ischemic). Uterus is absent, presumably due to hysterectomy. The urinary bladder appears unremarkable. L2 compression fracture deformity with retropulsion of fracture fragments narrowing the canal. Osseous demineralization. Impression: Partially imaged median sternotomy wires. Severe cardiomegaly. Dense coronary artery calcifications. Dense mitral annulus calcification. Bibasilar atelectasis or infiltrates. Cholelithiasis. Circumferential thickening of the rectosigmoid colon can be seen in setting of chronic diverticulosis. Clinical correlation is recommended to exclude colitis (I.e. infectious, inflammatory, ischemic). L2 compression fracture deformity with retropulsion of fracture fragments narrowing the canal. If indicated, suggest further evaluation with MRI. Additional findings as above.
--- NOTE | 2016-08-10 00:07 | CARD ---
APPROVED REPORT EKG Measurement Heart [id number] <Conclusion> Accelerated Junctional rhythm Right superior axis deviation Pulmonary disease pattern Incomplete right bundle branch block Nonspecific ST and T wave abnormality Abnormal ECG
[2016-08-10 07:40] VITALS: BP 131/68; PULSE 87; RESP 18; TEMP 98.3; O2SAT 97
--- NOTE | 2016-08-10 08:46 | HP ---
She is hospitalized under my care from Emergency Room. 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 She has developed worsening dementia over the course of last 3 years which is rapidly progressive . At this point, she is virtually bed and chair bound. She is chronically anticoagulated using Coum marie because of her metallic mitral valve. Periodic INR is checked; the last one approximately a wee k to 10 days back was in therapeutic range. There is no prior history of diabetes. The patient has complained of recurring abdominal pain, but her bowel moments have essentially been normal and there is no vomiting. The patient has been taking her food well. She also complains of frequency of mictu rition with scanty urine passed every time she is put on bedpan. The family has looked after her wel l at home all along with the help of a health aide who looks after her approximately 12 hours a day. Today, she was brought to the Emergency Room after a fall while using a bedside commode. A large he matoma is evident on the forehead, mostly on the left side. A CT of the head did not show any intrac ranial bleed. PHYSICAL EXAMINATION: GENERAL: Shows an elderly female who recognizes me readily, but does seem to be aware of her surroun dings generally. Cannot say how she had a fall. She keeps repeating that she was not at home when t he fall occurred. Is in no apparent distress at this time. VITAL SIGNS: Has a heart rate of 70 beats per minute, regular, with a blood pressure of 126/80 mmHg. NECK: Her jugular venous pressure was not elevated. EXTREMITIES: There was no edema of lower extremity. Pedal pulses were well felt. Extremities are w arm. Nailbeds are pink. No central or peripheral cyanosis was evident. A small, approximately 5 mm diameter, stage II pressure ulcer was evident over the sacrum. There were no discharge. There was no ulcer formation. There was no cyanosis, clubbing. HEART: A scar of sternotomy was evident. A mitral prosthetic felisha was audible. LUNGS: There were very few scattered rales at both bases. ABDOMEN: Soft. Liver and spleen were not palpable. There was a vague abdominal discomfort in the r ight hypochondrial area. There was no guarding or rigidity or tenderness. No mass was palpable. Th ere were no abdominal bruits. Her electrocardiogram showed evidence of atrial fibrillation with regular ventricular complexes sugge stive of a sania rhythm. The QRS morphology was suggestive of an incomplete right bundle branch bloc k with a superior axis. There were nonspecific ST-T changes. The chest x-ray revealed a severely di lated heart. Review of her echocardiogram from her prior study showed severe chamber enlargement wit h well-functioning mitral annulus. The pulmonary artery systolic pressure was elevated. LABORATORY DATA: Showed a hemoglobin and hematocrit of 9.3 grams with 27.3% respectively. Her MCV was at 101.8. The platelet count was normal. BUN and creatinine were 24 and 0.8 mg%. Her electroly sanjeev were normal. Her total bilirubin was 1.8, which in the past was as high as 4.8 mg. The AST is e levated which barely a few months back was within normal limits. IMPRESSION: At this time is a large forehead hematoma following a fall in a patient with advanced de mentia and congestive cardiac failure which is left ventricular systolic and chronic, secondary to rh eumatic mitral disease with status post mitral valve replacement, chronic atrial fibrillation. The p atient also has a history of recurring abdominal pains with abnormal liver chemistries and elevated b ilirubin. I have requested a CT of the abdomen with IV contrast. Given her advanced dementia, the patient may not be a candidate for very aggressive intervention if intraabdominal malignancies are found, but thi s would be discussed and dealt with after the CT of the abdomen is done. Delmar Bello MD cc: 23 TT: 08/09/2016 10:10:25 jose
--- NOTE | 2016-08-10 09:25 | CP.PCM.PN ---
Subjective - Date & Time of Evaluation Date of Evaluation: 08/10/16 Time of Evaluation: 09:10 - Subjective Subjective: Slept for 4-5 hrs with Seroquel 50 mg last night HR 64 BPM, irreg BP 136/70 mm Hg No rales, no oedema over feet Mitral prosth felisha+ Findings of CT abd noted and discussed with daughter INR 1.3, Warfarin ordered. Kerline mock today Spoke with pt's daughter Family weighing options of prison care (Home/chr placement) Objective - Vital Signs/Intake and Output Vital Signs (last 24 hours): Temp Pulse Resp BP Pulse Ox 98.3 F 87 18 131/68 97 08/10/16 07:39 08/10/16 08:42 08/10/16 07:39 08/10/16 08:42 08/10/16 07:39 - Medications Medications: Current Medications Acetaminophen (Tylenol 325mg Tab) 650 mg PO Q6 PRN PRN Reason: Pain, moderate (4-7) Atorvastatin Calcium (Lipitor) 10 mg PO DAILY [facility] Last Admin: 08/10/16 08:41 Dose: 10 mg Furosemide (Lasix) 40 mg PO DAILY [facility] Last Admin: 08/10/16 08:41 Dose: 40 mg Losartan Potassium (Cozaar) 50 mg PO DAILY [facility] Last Admin: 08/10/16 08:42 Dose: 50 mg Metoprolol Tartrate (Lopressor) 25 mg PO DAILY [facility] Last Admin: 08/10/16 08:40 Dose: 25 mg Sertraline HCl (Zoloft) 50 mg PO DAILY [facility] Last Admin: 08/10/16 08:41 Dose: 50 mg - Labs Labs: PT 14.6 Seconds (9.8-13.1) H 08/10/16 07:05 INR 1.3 (0.9-1.2) H 08/10/16 07:05
--- NOTE | 2016-08-11 08:29 | CARD ---
APPROVED REPORT EKG Measurement Heart [id number] <Conclusion> Wide QRS rhythm, possibly junctional rhythm Right bundle branch block T wave abnormality, consider lateral ischemia Abnormal ECG
== END 2016-08-10 11:13 | disposition home or self-care (01) | DRG 605 ==
LOC: H.ER 01:11 → H.ERHOLD 06:03 → H.MEDSURG1 08:35
PROVIDERS: ADMIT Internal Medicine Cardiovascular Disease; ATTEND Internal Medicine Cardiovascular Disease
PROC: 0HQ1XZZ Repair Face Skin, External Approach (ICD-10-PCS; principal; 2016-08-09)
DX: S01.81XA Laceration without foreign body of other part of head, initial encounter (principal); I50.22 Chronic systolic (congestive) heart failure; L89.152 Pressure ulcer of sacral region, stage 2; I11.0 Hypertensive heart disease with heart failure; I48.2 Chronic atrial fibrillation; G30.9 Alzheimer's disease, unspecified; F02.80 Dementia in other diseases classified elsewhere, unspecified severity, without behavioral disturbance, psychotic disturbance, mood disturbance, and anxiety; D64.9 Anemia, unspecified; E80.6 Other disorders of bilirubin metabolism; I25.10 Atherosclerotic heart disease of native coronary artery without angina pectoris; R26.81 Unsteadiness on feet; W18.12XA Fall from or off toilet with subsequent striking against object, initial encounter; Z79.01 Long term (current) use of anticoagulants; Z95.2 Presence of prosthetic heart valve; Z95.1 Presence of aortocoronary bypass graft; Z95.5 Presence of coronary angioplasty implant and graft; Y92.002 Bathroom of unspecified non-institutional (private) residence as the place of occurrence of the external cause; Y93.9 Activity, unspecified